=== PATIENT | female | born 2000 | race Caucasian/White ===

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

== ENCOUNTER 2022-04-21 02:24 | Emergency (ER) | payer BC, OTHER ==
[2022-04-21] MEDS ORDERED: TYLENOL EXTRA STRENGTH 500 MG PO ONE (02:47)
[2022-04-21] MEDS ORDERED: Trandate 100 MG PO ONE (02:48)
[2022-04-21] MEDS ORDERED: TYLENOL EXTRA STRENGTH 500 MG ONE (02:49)
[2022-04-21 03:47] LABS: ADD URINE CULTURE? YES (NO); Appearance Cloudy (Clear); Bacteria Few /HPF (None Seen); Bilirubin Negative (Negative); Blood Negative (Negative); Epithelial Cells Few /HPF (None Seen); Glucose, Urine Negative (Negative); Hyaline Casts NONE SEEN /LPF (0-2); Ketones Negative (Negative); Leukocyte Esterase Small (Negative); Nitrite Negative (Negative); Protein,Urine Dip 100 (Negative); Specific Gravity 1.025 (1.005-1.030); Urobilinogen 0.2 mg/dL (0.2); WBC 21-50 /HPF (0-5)
[2022-04-21] MEDS ORDERED: Levofloxacin 250MG Tablet PO ONE (04:01)
[2022-04-21] MEDS ORDERED: HYDROCODONE-ACETAMIN 2.5-108/5 ML SOLUTION PO STA (04:01)
[2022-04-21] MEDS ORDERED: Rocephin 1000 MG INJ IM ONE (04:02)
[2022-04-21 04:05] VITALS: BP 118/78; PULSE 111; O2SAT 95
[2022-04-21] MEDS ORDERED: Levofloxacin 250MG Tablet ONE (04:13)
[2022-04-21] MEDS ORDERED: HYDROCODONE-ACETAMIN 2.5-108/5 ML SOLUTION ONE (04:14)
[2022-04-21] MEDS ORDERED: Rocephin 1000 MG INJ ONE (04:14)
--- NOTE | 2022-04-21 04:15 | ERPHSYRPT ---
- History of Present Illness Time Seen by Provider: 04/21/22 03:21 Source: patient Exam Limitations: no limitations Patient Subjective Stated Complaint: fever and productive cough since sunday Triage Nursing Assessment: pt ambulatory to bed by self, alert and oriented x3, pt c/o cough, fever since sunday, pt tachycardiac and hypertensive, pt takes labetalol BID at home but has not taken it today, pt febrile, no antipyretics taken recently, pt was seen at on sunday and , she was swabbed for COVID, flu and strep both visits and recieved a steriod IM injection today today, pt has been negative for all swabs both visits. Physician History: 21 years old female presented to the ER with 4 days history of cough congestion along with fever chills. She has been evaluated twice in the urgent care with negative strep flu and COVID. Because of repeated coughing having chest soreness. Denies any shortness of breath. Patient has history of hypertension and has not taken her routine medications today and is hypertensive on presentation with some tachycardia. Timing/Duration: day(s) (4), gradual onset, worse Cough Quality/Degree: moderate, productive cough Possible Cause: unknown cause Modifying Factors: Worsens With: coughing, exertion Associated Symptoms: fever, chills, chest pain/soreness, cough, muscle aches, sore throat, No shortness of breath, No wheezing Allergies/Adverse Reactions: No Known Drug Allergies Allergy (Verified 04/21/22 02:31) Home Medications: Labetalol HCl 100 mg [Trandate 100 MG] 100 mg PO BID 04/21/22 [History] Sertraline HCl 50 mg PO DAILY 04/21/22 [History] Hx Tetanus, Diphtheria Vaccination/Date Given: No Hx Influenza Vaccination/Date Given: No Hx Pneumococcal Vaccination/Date Given: No Immunizations Up to Date: Yes Travel Risk - International Travel Have you traveled outside of the country in past 3 weeks: No - Coronavirus Screening Are you exhibiting any of the following symptoms?: Yes Symptoms: Fever, Cough: New Onset Close contact with a COVID-19 positive Pt in past 14-21 Days: No - Vaccine Status Have you recieved a Covid-19 vaccination: No - Review of Systems Constitutional: Fever, Chills, Fatigue Eyes: No Symptoms Ears, Nose, & Throat: Throat Pain Respiratory: Cough Cardiac: No Symptoms Abdominal/Gastrointestinal: No Symptoms Genitourinary Symptoms: No Symptoms Musculoskeletal: Myalgias Skin: No Symptoms Neurological: No Symptoms Endocrine: No Symptoms Hematologic/Lymphatic: No Symptoms Immunological/Allergic: No Symptoms - Past Medical History Pertinent Past Medical History: No Neurological History: No Pertinent History ENT History: No Pertinent History Cardiac History: Hypertension Respiratory History: No Pertinent History Endocrine Medical History: No Pertinent History Musculoskeletal History: Fractures GI Medical History: No Pertinent History History: No Pertinent History Psycho-Social History: No Pertinent History Female Reproductive Disorders: No Pertinent History Other Medical History: Pt notes L arm fx when she was a child - Past Surgical History Past Surgical History: Yes Neuro Surgical History: No Pertinent History Cardiac: No Pertinent History Respiratory: No Pertinent History Gastrointestinal: No Pertinent History Genitourinary: No Pertinent History Musculoskeletal: Orthopedic Surgery Female Surgical History: No Pertinent History Other Surgical History: R wrist - Social History Smoking Status: Never smoker Exposure to second hand smoke: Yes Drug Use: none Patient Lives Alone: No Significant Family History: no pertinent family hx - Female History Hx Last Menstrual Period: 03/13/22 Hx Now: No - Nursing Vital Signs Nursing Vital Signs: Initial Vital Signs Temperature 101.2 F 04/21/22 02:32 Pulse Rate 130 H 04/21/22 02:32 Respiratory Rate 18 04/21/22 02:32 Blood Pressure 176/121 04/21/22 02:32 O2 Sat by Pulse Oximetry 95 04/21/22 02:32 Pain Scale Pain Intensity 0 - Physical Exam General Appearance: no apparent distress, alert Eye Exam: PERRL/EOMI Ears, Nose, Throat Exam: normal ENT inspection Neck Exam: normal inspection, non-tender, supple, full range of motion Respiratory Exam: normal breath sounds, lungs clear Cardiovascular Exam: normal peripheral pulses, tachycardia Gastrointestinal/Abdomen Exam: soft, normal bowel sounds, No tenderness Back Exam: normal inspection Extremity Exam: normal inspection Neurologic Exam: alert, oriented x 3, normal mood/affect, sensation nml, No motor deficits Skin Exam: normal color SpO2 Interpretation: normal SpO2: 95 O2 Delivery: Room Air Ordered Tests: Active Orders 24 hr Category Date Time Status CHEST 1 VIEW (PORTABLE) Stat Exams 04/21/22 03:02 Taken CULTURE,URINE Stat Lab 04/21/22 02:47 Received HCG,QUALITATIVE URINE Stat Lab 04/21/22 02:48 Completed UA W/RFX UR CULTURE Stat Lab 04/21/22 02:47 Completed Medication Summary Discontinued Medications Generic Name Dose Route Start Last Admin Trade Name Candy PRN Reason Stop Dose Admin Acetaminophen 1,000 mg 04/21/22 02:47 04/21/22 02:50 Acetaminophen 500 Mg Tablet PO 04/21/22 02:48 1,000 mg STAT ONE Administration Acetaminophen Confirm 04/21/22 02:49 Acetaminophen 500 Mg Tablet Administered 04/21/22 02:50 Dose 1,000 mg .ROUTE .STK-MED ONE Hydrocodone Bitart/Acetaminophen 10 ml 04/21/22 04:01 04/21/22 04:18 Hydrocodone/Acetaminophen 5 Ml Udcup PO 04/21/22 04:02 10 ml STAT STA Administration Hydrocodone Bitart/Acetaminophen Confirm 04/21/22 04:14 Hydrocodone/Acetaminophen 5 Ml Udcup Administered 04/21/22 04:15 Dose 10 ml .ROUTE .STK-MED ONE Ceftriaxone Sodium 1,000 mg 04/21/22 04:02 04/21/22 04:18 Ceftriaxone Sodium 1000 Mg Inj Vial IM 04/21/22 04:03 1,000 mg STAT ONE Administration Ceftriaxone Sodium Confirm 04/21/22 04:14 Ceftriaxone Sodium 1000 Mg Inj Vial Administered 04/21/22 04:15 Dose 1,000 mg .ROUTE .STK-MED ONE Labetalol HCl 100 mg 04/21/22 02:48 04/21/22 02:57 Labetalol Hcl 100 Mg Tablet PO 04/21/22 02:49 100 mg STAT ONE Administration Levofloxacin 500 mg 04/21/22 04:01 04/21/22 04:18 Levofloxacin 250 Mg Tab PO 04/21/22 04:02 500 mg STAT ONE Administration Levofloxacin Confirm 04/21/22 04:13 Levofloxacin 250 Mg Tab Administered 04/21/22 04:14 Dose 500 mg .ROUTE .STK-MED ONE Lab/Rad Data: Laboratory Results 04/21/22 04/21/22 Range/Units 02:48 02:47 Urine Color Yellow (Yellow) Urine Appearance Cloudy A (Clear) Urine pH 6.0 (4.6-8.0) Ur Specific [place] 1.025 (1.005-1.030) Urine Protein 100 A (Negative) Urine Glucose (UA) Negative (Negative) mg/dL Urine Ketones Negative (Negative) Urine Blood Negative (Negative) Urine Nitrite Negative (Negative) Urine Bilirubin Negative (Negative) Urine Urobilinogen 0.2 (0.2) mg/dL Ur Leukocyte Esterase Small A (Negative) U Hyaline Cast (Auto) NONE SEEN (0-2) /LPF Urine Microscopic RBC 11-20 A (0-5) /HPF Urine Microscopic WBC 21-50 A (0-5) /HPF Ur Epithelial Cells Few (None Seen) /HPF Urine Bacteria Few A (None Seen) /HPF Urine Culture Reflexed YES (NO) Urine HCG, Qual NEGATIVE (Negative) - Progress Progress: re-examined Air Movement: good Progress Note: 04/21/22 04:10 21 years old is evaluated for the cough congestion and fever chills for the last 3 to 4 days with progressive worsening. Patient reports coughing up there to yellow sputum small in amount. Because of repeated coughing having generalized chest soreness. Has a temperature of 101 on presentation, given Tylenol and it improved. Patient was also tachycardic and hypertensive and has not taken her routine antihypertensive today. She is given labetalol and blood pressure improved. Chest x-ray reviewed by me revealed right-sided new opacity other than previous changes, official report is pending. I believe patient is developing pneumonia on the right side. She has a COVID test done yesterday and was negative. He does have UTI as well. She is given a shot of Rocephin and started on Levaquin. Patient is not in any distress and denies any chest pain or difficulty breathing. I would give her a prescription of albuterol inhaler, cough syrup and antibiotics and outpatient follow-up recommended. Discussed signs symptoms of worsening needing return to ER which she seems understanding. Blood Culture(s) Obtained: No Antibiotics given: Yes Counseled pt/family regarding: lab results, diagnosis, need for follow-up, rad results - Departure Departure Disposition: Home Clinical Impression: Pneumonia, Acute UTI, Uncontrolled hypertension Condition: Stable Critical Care Time: No Referrals: CRYSTAL RODRIGES MD [Primary Care Provider] - Follow Up with PCP/3 days Instructions: Pneumonia, Adult (DC), Cough, Adult (DC) Additional Instructions: Take Tylenol/ibuprofen as needed for fever chills/body aches. Follow-up with your primary care physician for reevaluation. Return to ER for worsening cough or if develop difficulty breathing, persistent high-grade fever etc. Take your blood pressure medications regularly, keep a log and follow-up with PCP to see if needed any changes in medications. Prescriptions: Hydrocodone/Acetaminophen [Hydrocodone-Acetamn 7.5-325/15] 10 ml PO Q6HPRN PRN 3 Days #118 ml MDD 40NL PRN Reason: Cough Albuterol Sulfate [Albuterol Sulfate Hfa] 8.5 gm IH Q6H PRN 7 Days #1 inh PRN Reason: Cough Levofloxacin [Levaquin 500 MG Tablet] 500 mg PO DAILY #7 tablet
--- NOTE | 2022-04-21 08:41 | XRAY ---
Indication: Fever and cough. Comparison: March 28, 2019 Portable chest demonstrates reoccurring moderate right base infiltrate/atelectasis. New minimal left upper lobe subsegmental atelectasis/scarring. Remaining heart and bony thorax normal.
== END 2022-04-21 04:35 | disposition home or self-care (01) ==
LOC: ED 02:24
DX: J18.9 Pneumonia, unspecified organism (principal); N39.0 Urinary tract infection, site not specified; I10 Essential (primary) hypertension; R05.1 Acute cough; R50.9 Fever, unspecified; Z79.891 Long term (current) use of opiate analgesic; Z79.899 Other long term (current) drug therapy; Z28.310 Unvaccinated for COVID-19
CPT/HCPCS: 71045; 81001; 81025; 87086; 96372; 99284; J0696; A9270-GY

== ENCOUNTER 2022-08-16 12:28 | Day surgery (SDC) | payer BC, OTHER ==
[2022-08-16] MEDS ORDERED: LIDOCAINE HCL 2% 100 MG/5 ML IJ ONE (12:29)
[2022-08-16 12:56] LABS: HCG URINE TEST NEGATIVE (NEGATIVE)
[2022-08-16] MEDS ORDERED: DIPRIVAN 200 MG/20 ML IV ONE (14:23)
[2022-08-16] MEDS ORDERED: Lactated Ringers 1,000 ML IV ONE (15:23)
--- NOTE | 2022-08-16 16:40 | XRAY ---
Indication: Bilateral L4-S1 MBB. Intraoperative fluoroscopy provided for 15 seconds. Single digital spot image submitted for interpretation demonstrates posterior needle tips projecting over the expected left and right L4-S1 nerve roots. Correlate with intraoperative findings/report.
--- NOTE | 2022-08-16 16:44 | XRAY ---
15 seconds of fluoroscopy was used in surgery for a bilateral L4-S1 MBB.
== END 2022-08-16 14:50 | disposition home or self-care (01) ==
LOC: SDC-PAIN 12:28
PROVIDERS: ATTEND Psychiatry & Neurology Pain Medicine
DX: M47.816 Spondylosis without myelopathy or radiculopathy, lumbar region (principal); Z79.899 Other long term (current) drug therapy
CPT/HCPCS: 64493; 64494; 72020; 77002; 81025; J2704

== ENCOUNTER 2022-09-27 12:02 | Day surgery (SDC) | payer BC, OTHER ==
[2022-09-27] MEDS ORDERED: BUPIVACAINE 0.5% VIAL IJ ONE (12:03)
[2022-09-27 13:28] LABS: HCG SERUM TEST NEGATIVE (NEGATIVE)
[2022-09-27] MEDS ORDERED: DIPRIVAN 200 MG/20 ML IV ONE ×2 (13:52→14:05)
[2022-09-27] MEDS ORDERED: Lactated Ringers 1,000 ML IV ONE (14:36)
--- NOTE | 2022-09-27 16:57 | XRAY ---
Indication: Bilateral L4-S1 MBB. Intraoperative fluoroscopy provided for 13 seconds. Single digital spot image submitted for interpretation demonstrates posterior needle tips projecting over the expected left and right L4-S1 nerve roots. Correlate with intraoperative findings/report.
--- NOTE | 2022-09-27 17:12 | XRAY ---
13 seconds of fluoroscopy was used in surgery for a bilateral L4-S1 MBB.
== END 2022-09-27 14:24 | disposition home or self-care (01) ==
LOC: SDC-PAIN 12:02
PROVIDERS: ATTEND Psychiatry & Neurology Pain Medicine
DX: M47.816 Spondylosis without myelopathy or radiculopathy, lumbar region (principal)
CPT/HCPCS: 36415; 64493; 64494; 72020; 77002; 84703; J2704

== ENCOUNTER 2022-10-16 13:32 | Emergency (ER) | payer BC, OTHER ==
--- NOTE | 2022-10-16 13:36 | ERPHSYRPT ---
- History of Present Illness Time Seen by Provider: 10/16/22 13:36 Source: patient Exam Limitations: no limitations Physician History: This is a 22-year-old obese white female who prior to arrival, tripped over a baby gate and fell onto her right knee. She is able to bear weight but it does hurt to do so. There are no other complaints of pain or injury sites. Method of Injury: fell, twisted Occurred: just prior to arrival Quality: constant, aching Severity of Pain-Max: mild (To moderate) Severity of Pain-Current: mild (To moderate) Lower Extremities Pain: knee: right Modifying Factors: Improves With: movement Associated Symptoms: other (Hurts to bear weight but can do so) Allergies/Adverse Reactions: No Known Drug Allergies Allergy (Verified 10/16/22 13:47) Home Medications: Sertraline HCl 50 mg PO DAILY 04/21/22 [History] Hydrocodone/Acetaminophen [Hydrocodone-Acetamin 5-325 mg] 5 mg PO TID 10/16/22 [History] Hx Tetanus, Diphtheria Vaccination/Date Given: No Hx Influenza Vaccination/Date Given: No Hx Pneumococcal Vaccination/Date Given: No Travel Risk - International Travel Have you traveled outside of the country in past 3 weeks: No - Coronavirus Screening Are you exhibiting any of the following symptoms?: No Close contact with a COVID-19 positive Pt in past 14-21 Days: No - Vaccine Status Have you recieved a Covid-19 vaccination: No - Review of Systems Constitutional: No Symptoms Eyes: No Symptoms Ears, Nose, & Throat: No Symptoms Respiratory: No Symptoms Cardiac: No Symptoms Abdominal/Gastrointestinal: No Symptoms Genitourinary Symptoms: No Symptoms Musculoskeletal: Fall (Right knee), Injury Skin: No Symptoms Neurological: No Symptoms Psychological: No Symptoms Endocrine: No Symptoms Hematologic/Lymphatic: No Symptoms Immunological/Allergic: No Symptoms All Other Systems: Reviewed and Negative - Past Medical History Pertinent Past Medical History: No Neurological History: No Pertinent History ENT History: No Pertinent History Cardiac History: Hypertension Respiratory History: No Pertinent History Endocrine Medical History: No Pertinent History Musculoskeletal History: Fractures GI Medical History: No Pertinent History History: No Pertinent History Psycho-Social History: No Pertinent History Female Reproductive Disorders: No Pertinent History Other Medical History: Pt notes L arm fx when she was a child - Past Surgical History Past Surgical History: Yes Neuro Surgical History: No Pertinent History Cardiac: No Pertinent History Respiratory: No Pertinent History Gastrointestinal: No Pertinent History Genitourinary: No Pertinent History Musculoskeletal: Orthopedic Surgery Female Surgical History: No Pertinent History Other Surgical History: R wrist - Social History Smoking Status: Never smoker Exposure to second hand smoke: Yes Drug Use: none Patient Lives Alone: No Significant Family History: no pertinent family hx - Nursing Vital Signs Nursing Vital Signs: Initial Vital Signs Temperature 97.8 F 10/16/22 13:42 Pulse Rate 105 H 10/16/22 13:42 Respiratory Rate 18 10/16/22 13:42 Blood Pressure 136/80 10/16/22 13:42 O2 Sat by Pulse Oximetry 99 10/16/22 13:42 Pain Scale Pain Intensity 8 - Physical Exam General Appearance: no apparent distress, alert, anxiety, obese Eyes, Ears, Nose, Throat Exam: normal ENT inspection, moist mucous membranes Neck Exam: normal inspection, non-tender, supple, full range of motion Cardiovascular/Respiratory Exam: chest non-tender, no respiratory distress Gastrointestinal/Abdominal Exam: non-tender Back Exam: normal inspection, normal range of motion, No CVA tenderness, No vertebral tenderness Hips Exam: bilateral: non-tender, normal inspection, normal range of motion, no evidence of injury Legs Exam: bilateral leg: non-tender, normal inspection, normal range of motion, no evidence of injury Knees Exam: right knee: soft tissue tenderness (Anteriorly), left knee: non- tender, bilateral knee: normal inspection, normal range of motion, no evidence of injury Ankle Exam: bilateral ankle: non-tender, normal inspection, normal range of motion, no evidence of injury Foot Exam: bilateral foot: non-tender, normal inspection, normal range of motion, no evidence of injury Neuro/Tendon Exam: normal sensation, normal motor functions, normal tendon functions, responds to pain, no evidence tendon injury Mental Status Exam: alert, oriented x 3, cooperative Skin Exam: normal color, warm, dry SpO2 Interpretation: normal O2 Delivery: Room Air - Course Nursing assessment & vital signs reviewed: Yes Ordered Tests: Active Orders 24 hr Category Date Time Status KNEE (3 VIEWS) Stat Exams 10/16/22 13:43 Completed - Progress Progress: improved, pain not gone completely Progress Note: 10/16/22 14:13 X-ray right knee was interpreted by the radiologist and the impression was reviewed by me. This patient does not have any acute fracture or dislocation. This patient's medical issue is 1 of low complexity. Level complexity in the work-up performed is based on review of the patient's past medical history, review of the patient's medication list, review the patient's drug allergy list, history of present illness. The work-up in this patient includes x-ray of the right knee. The above-stated findings are noted. Counseled pt/family regarding: diagnosis, need for follow-up, rad results Medical Desision Making - Independent Historian Additional History obtained from: Spouse - Diagnostic Testing Diagnostic test were ordered, analyzed, and reviewed by me: Yes Radiological Interpretation: Reviewed by me, Teleradiologist Report - Risk of complications Minimal Risk: Minimal risk of morbidity - Departure Departure Disposition: Home Clinical Impression: Contusion of right knee Condition: Stable Critical Care Time: No Referrals: CRYSTAL RODIRGES MD [Primary Care Provider] - Follow up/PCP as directed Additional Instructions: Ice pack to right knee 3 times a day for the next 48 hours. Use Tylenol and ibuprofen for pain control. Follow-up with your primary care provider or at [facility] orthopedic clinic for further evaluation and management. Weightbearing and activity as tolerated. If you are going to the orthopedic clinic here at [facility], it is a Sunday through Sunday 8 AM to 10 AM clinic. You do not need an appointment.
[2022-10-16 13:54] VITALS: BP 136/80; TEMP 97.8
--- NOTE | 2022-10-16 14:06 | XRAY ---
Indication: Pain following fall. Comparison: None 3 view right knee demonstrates minimal medial joint space narrowing and small suprapatella spurring. No other bony, articular, or soft tissue abnormalities.
[2022-10-16 14:34] VITALS: PULSE 100; RESP 16; O2SAT 98
== END 2022-10-16 14:34 | disposition home or self-care (01) ==
LOC: ED 13:32
DX: S80.01XA Contusion of right knee, initial encounter (principal); W01.0XXA Fall on same level from slipping, tripping and stumbling without subsequent striking against object, initial encounter; I10 Essential (primary) hypertension; Z79.891 Long term (current) use of opiate analgesic; Z79.899 Other long term (current) drug therapy; Z28.310 Unvaccinated for COVID-19
CPT/HCPCS: 73562; 99283

== ENCOUNTER 2023-01-10 10:11 | Day surgery (SDC) | payer OTHER ==
[2023-01-10] MEDS ORDERED: LIDOCAINE HCL 1% 50 MG/5 ML VL PF IJ ONE (10:12)
[2023-01-10] MEDS ORDERED: Depo-Medrol 40 MG/ML IM ONE (10:12)
[2023-01-10] MEDS ORDERED: BUPIVACAINE 0.5% VIAL IJ ONE (10:12)
[2023-01-10 11:01] LABS: HCG URINE TEST NEGATIVE (NEGATIVE)
[2023-01-10] MEDS ORDERED: DIPRIVAN 200 MG/20 ML IV ONE ×2 (12:31→12:37)
[2023-01-10] MEDS ORDERED: Versed 2 MG/2 ML Injection ONE (12:31)
[2023-01-10] MEDS ORDERED: Lactated Ringers 1,000 ML IV ONE (15:04)
--- NOTE | 2023-01-10 17:02 | XRAY ---
Indication: Right L4-S1 RFA. Intraoperative fluoroscopy provided for 30 seconds. 5 digital spot image submitted for interpretation demonstrates posterior needle tips projecting over the expected right L4-S1 nerve roots. Correlate with intraoperative findings/report.
--- NOTE | 2023-01-10 17:21 | XRAY ---
30 seconds of fluoroscopy was used in surgery for a right L4-S1 RFA.
== END 2023-01-10 12:59 | disposition home or self-care (01) ==
LOC: SDC-PAIN 10:11
PROVIDERS: ATTEND Psychiatry & Neurology Pain Medicine
DX: M47.816 Spondylosis without myelopathy or radiculopathy, lumbar region (principal); Z79.899 Other long term (current) drug therapy
CPT/HCPCS: 64635; 64636; 72100; 77002; 81025; J1030; J2001; J2250; J2704

== ENCOUNTER 2023-01-11 10:05 | Day surgery (SDC) | payer OTHER ==
[2023-01-11] MEDS ORDERED: BUPIVACAINE 0.5% VIAL IJ ONE (10:06)
[2023-01-11] MEDS ORDERED: XYLOCAINE 1% HCL 20 ML MDV IJ ONE (10:06)
[2023-01-11] MEDS ORDERED: Depo-Medrol 40 MG/ML IM ONE (10:06)
[2023-01-11 10:53] LABS: HCG URINE TEST NEGATIVE (NEGATIVE)
[2023-01-11] MEDS ORDERED: DIPRIVAN 200 MG/20 ML IV ONE ×2 (11:57→12:15)
[2023-01-11] MEDS ORDERED: Lactated Ringers 1,000 ML IV ONE (12:29)
--- NOTE | 2023-01-11 12:53 | XRAY ---
Indication: Left L4-S1 RFA. Intraoperative fluoroscopy provided for 21 seconds. 4 digital spot image submitted for interpretation demonstrates posterior needle tips projecting over the expected left L4-S1 nerve roots. Correlate with intraoperative findings/report.
--- NOTE | 2023-01-11 13:50 | XRAY ---
21 seconds of fluoroscopy was used in surgery for a left L4-S1 RFA.
== END 2023-01-11 12:30 | disposition home or self-care (01) ==
LOC: SDC-PAIN 10:05
PROVIDERS: ATTEND Psychiatry & Neurology Pain Medicine
DX: M47.816 Spondylosis without myelopathy or radiculopathy, lumbar region (principal)
CPT/HCPCS: 64635; 64636; 72100; 77002; 81025; J1030; J2704

== ENCOUNTER 2023-03-06 09:39 | Emergency (ER) | payer OTHER ==
[2023-03-06] MEDS ORDERED: TORAdol 30 mg Injection IV ONE (09:40)
[2023-03-06] MEDS ORDERED: Sodium Chloride 0.9% 1000 ML 1,000 ML IV SCH (09:45)
[2023-03-06 09:48] VITALS: RESP 24; TEMP 97.5
[2023-03-06] MEDS ORDERED: TORAdol 30 mg Injection ONE ×2 (09:59→10:02)
[2023-03-06] MEDS ORDERED: Zofran 4 MG/2 ML VIAL IV ONE (09:59)
[2023-03-06] MEDS ORDERED: Sodium Chloride 0.9% 1000 ML 0 ML ONE (09:59)
[2023-03-06] MEDS ORDERED: Zofran 4 MG/2 ML VIAL ONE ×2 (10:02→10:04)
[2023-03-06] MEDS ORDERED: Sodium Chloride 0.9% 1000 ML 1,000 ML ONE (10:02)
[2023-03-06 10:15] LABS: Absolute Neutrophil Ct (ANC) 5.94 x10^3/uL (1.4-6.9); BASOPHIL % 0.7 % (0.0-0.4); Basophil (Absolute #) 0.07 x10^3/uL (0-0.4); Eosinophil % 1.6 % (0.00-5.0); Eosinophil (Absolute #) 0.17 x10^3/uL (0-0.5); Hematocrit 37.5 % (35-47); Hemoglobin 11.5 g/dL (12.0-16.0); IMMATURE GRAN # 0.03 x10^3u/L (0.00-0.03); IMMATURE GRAN % 0.3 % (0.00-0.4); Lymphocyte (Absolute #) 3.48 x10^3/uL (1.0-4.6); Lymphocytes % 33.8 % (24.0-44.0); Mean Cell Volume 80.3 fL (78-100); Mean Corpuscular Hemoglobin 24.6 pg (26-32); Mean Corpuscular Hgb Concent. 30.7 g/dL (32-36); Mean Platelet Volume 9.1 fL (7.5-11.0); Monocyte (Absolute #) 0.62 x10^3/uL (0.0-1.3); Neutrophil % 57.6 % (36.0-66.0); Platelet Count 499 x10^3/uL (150-450); Red Blood Count 4.67 x10^6/uL (4.1-5.4); Red Cell Distribution Width 15.9 % (11.5-14.0); White Blood Count 10.3 x10^3/uL (4.0-10.5)
[2023-03-06 10:29] LABS: HCG SERUM TEST NEGATIVE (NEGATIVE)
[2023-03-06 10:30] LABS: ALBUMIN 4.6 g/dL (3.5-5.0); ANION GAP 16.9 MEQ/L (5-15); BILIRUBIN,TOTAL 0.6 mg/dL (0.2-1.3); Calcium 9.6 mg/dL (8.4-10.2); Creatinine 1 0.69 mg/dL (0.52-1.04); EST GLOMERULAR FILTRATION RATE 124.2 ML/MIN; Potassium 3.9 mmol/L (3.5-5.1); Total Protein 8.2 g/dL (6.3-8.2)
--- NOTE | 2023-03-06 11:07 | XRAY ---
Indication: Right upper quadrant pain. Nausea and vomiting. Multiple contiguous axial images obtained through the abdomen and pelvis without contrast. Comparison: None Lung bases clear. Heart not enlarged. Noncontrasted stomach and bowel loops appear nonobstructed with normal appendix. 3-4 mm distal right ureter calculus just proximal to UVJ. More proximal right ureter is prominent up to 11-12 mm along with mild hydronephrosis consistent with partial obstructive uropathy. Incidental 3.5 cm right ovary cyst and 20.7 cm fatty hepatomegaly. No free fluid/air. Remaining liver, gallbladder, pancreas, spleen, adrenal glands, kidneys, ureters, bladder, uterus, and aorta are unremarkable for noncontrast exam. Osseous structures intact. Impression: 1. 3-4 mm distal right ureteral calculus producing partial obstruction as detailed. 2. Incidental fatty hepatomegaly and 3.5 cm right ovary cyst.
--- NOTE | 2023-03-06 11:16 | ERPHSYRPT ---
- History of Present Illness Time Seen by Provider: 03/06/23 10:00 Historian: patient Exam Limitations: no limitations Patient Subjective Stated Complaint: Pt states "My lower belly is hurting really bad." Triage Nursing Assessment: PT presented alert and oriented X 3, skin pwd. pt unable to sit still, pt moaning and screaming, pt in no apparent respiratory distress. Physician History: Patient is a 22-year-old female presents to our ED for evaluation of acute onset right lower quadrant painThat started this morning. Pain described as an ache that is Localized. No trauma no fever. No vaginal discharge. Symptoms are constant. Symptoms are moderate in intensity. No specific worsening improving factors. Patient voices no other complaints or concerns at this time. Portions of this note were created with voice recognition technology. There may be grammatical, spelling, punctuation or sound alike errors Timing/Duration: today Activities at Onset: none Quality: aching Abdominal Pain Onset Location: RLQ Pain Radiation: no radiation Severity of Pain-Max: moderate Severity of Pain-Current: mild Modifying Factors: Improves With: nothing Associated Symptoms: nausea Previous symptoms: no prior history Allergies/Adverse Reactions: No Known Drug Allergies Allergy (Verified 10/16/22 13:47) Home Medications: No Reportable Medications [No Reported Medications] 03/06/23 [History] Hx Tetanus, Diphtheria Vaccination/Date Given: No Hx Influenza Vaccination/Date Given: No Hx Pneumococcal Vaccination/Date Given: No Immunizations Up to Date: No Travel Risk - International Travel Have you traveled outside of the country in past 3 weeks: No - Coronavirus Screening Are you exhibiting any of the following symptoms?: No Close contact with a COVID-19 positive Pt in past 14-21 Days: No - Vaccine Status Have you recieved a Covid-19 vaccination: No - Review of Systems Constitutional: No Symptoms, No Fever, No Chills Eyes: No Symptoms Ears, Nose, & Throat: No Symptoms Respiratory: No Symptoms, No Cough, No Dyspnea Cardiac: No Symptoms, No Chest Pain, No Edema, No Syncope Abdominal/Gastrointestinal: No Symptoms, No Abdominal Pain, No Nausea, No Vomiting, No Diarrhea Genitourinary Symptoms: No Symptoms, No Dysuria Musculoskeletal: No Symptoms, No Back Pain, No Neck Pain Skin: No Symptoms, No Rash Neurological: No Symptoms, No Dizziness, No Focal Weakness, No Sensory Changes Psychological: No Symptoms Endocrine: No Symptoms Hematologic/Lymphatic: No Symptoms Immunological/Allergic: No Symptoms All Other Systems: Reviewed and Negative - Past Medical History Pertinent Past Medical History: No Neurological History: No Pertinent History ENT History: No Pertinent History Cardiac History: Hypertension Respiratory History: No Pertinent History Endocrine Medical History: No Pertinent History Musculoskeletal History: Fractures GI Medical History: No Pertinent History History: No Pertinent History Psycho-Social History: No Pertinent History Female Reproductive Disorders: No Pertinent History Other Medical History: Pt notes L arm fx when she was a child - Past Surgical History Past Surgical History: Yes Neuro Surgical History: No Pertinent History Cardiac: No Pertinent History Respiratory: No Pertinent History Gastrointestinal: No Pertinent History Genitourinary: No Pertinent History Musculoskeletal: Orthopedic Surgery Female Surgical History: No Pertinent History Other Surgical History: R wrist - Social History Smoking Status: Never smoker Exposure to second hand smoke: Yes Drug Use: none Patient Lives Alone: No Significant Family History: no pertinent family hx - Female History Hx Last Menstrual Period: 02/02/2023 Hx Now: No - Nursing Vital Signs Nursing Vital Signs: Initial Vital Signs Temperature 97.5 F 03/06/23 09:45 Pulse Rate 99 H 03/06/23 09:45 Respiratory Rate 24 03/06/23 09:45 Blood Pressure 146/101 03/06/23 09:45 O2 Sat by Pulse Oximetry 97 03/06/23 09:45 Pain Scale Pain Intensity 0 - Physical Exam General Appearance: no apparent distress, alert Eye Exam: PERRL/EOMI, eyes nml inspection Ears, Nose, Throat Exam: normal ENT inspection, pharynx normal, moist mucous membranes Neck Exam: normal inspection, non-tender, supple, full range of motion Respiratory Exam: normal breath sounds, lungs clear, airway intact, No respiratory distress Cardiovascular Exam: regular rate/rhythm, normal heart sounds, normal peripheral pulses Gastrointestinal/Abdomen Exam: soft, No tenderness, No mass Back Exam: normal inspection, normal range of motion, No CVA tenderness, No vertebral tenderness Extremity Exam: normal inspection, normal range of motion, pelvis stable Neurologic Exam: alert, oriented x 3, cooperative, normal mood/affect, nml cerebellar function, sensation nml, No motor deficits Skin Exam: normal color, warm, dry Lymphatic Exam: No adenopathy SpO2 Interpretation: normal SpO2: 98 O2 Delivery: Room Air - Course Nursing assessment & vital signs reviewed: Yes - CT Exams Abdomen/Pelvis CT Interpretation: Tele-radiologist Report (3 to 4 mm right UVJ Ureterolithiasis with hydronephrosis. Right ovarian cyst measuring 3.5 cm. Fatty hepatomegaly.) Ordered Tests: Active Orders 24 hr Category Date Time Status IV Insertion STAT Care 03/06/23 09:40 Active ABDOMEN AND PELVIS W/0 CONTRAS [CT] Stat Exams 03/06/23 10:47 Completed CBC W DIFF Stat Lab 03/06/23 10:00 Completed CMP Stat Lab 03/06/23 10:00 Completed CULTURE,URINE Stat Lab 03/06/23 11:30 Received HCG QUALITATIVE, SERUM Stat Lab 03/06/23 10:00 Completed UA W/RFX UR CULTURE Stat Lab 03/06/23 11:30 Completed Medication Summary Generic Name Dose Route Start Last Admin Trade Name Freq PRN Reason Stop Dose Admin Sodium Chloride 1,000 mls @ 100 mls/hr 03/06/23 09:45 03/06/23 10:01 Sodium Chloride 0.9% 1000 Ml IV 04/05/23 09:44 100 mls/hr .Q10H ЮЛИЯ Administration Discontinued Medications Generic Name Dose Route Start Last Admin Trade Name Freq PRN Reason Stop Dose Admin Droperidol 1.25 mg 03/06/23 13:01 03/06/23 13:04 Droperidol 5 Mg/2 Ml Vial IV 03/06/23 13:02 1.25 mg STAT ONE Administration Droperidol Confirm 03/06/23 13:03 Droperidol 5 Mg/2 Ml Vial Administered 03/06/23 13:04 Dose 5 mg .ROUTE .STK-MED ONE Ceftriaxone Sodium/Dextrose 1 g in 50 mls @ 100 mls/hr 03/06/23 12:13 03/06/23 13:02 Rocephin 1 Gm-D5w 50 Ml Bag IV 03/06/23 12:42 Infused STAT STA Infusion Ceftriaxone Sodium/Dextrose Confirm 03/06/23 12:22 Rocephin 1 Gm-D5w 50 Ml Bag Administered 03/06/23 12:23 Dose 1 g in 50 mls @ ud IV .STK-MED ONE Ketorolac Tromethamine 30 mg 03/06/23 09:40 03/06/23 10:02 Ketorolac Tromethamine 30 Mg/Ml Inj IV 03/06/23 09:41 30 mg STAT ONE Administration Ketorolac Tromethamine Confirm 03/06/23 09:59 Ketorolac Tromethamine 30 Mg/Ml Inj Administered 03/06/23 10:00 Dose 30 mg .ROUTE .STK-MED ONE Ketorolac Tromethamine Confirm 03/06/23 10:02 Ketorolac Tromethamine 30 Mg/Ml Inj Administered 03/06/23 10:03 Dose 30 mg .ROUTE .STK-MED ONE Morphine Sulfate 4 mg 03/06/23 11:51 03/06/23 11:56 Morphine Sulfate 4 Mg/Ml Injection IV 03/06/23 11:52 4 mg STAT ONE Administration Morphine Sulfate Confirm 03/06/23 11:53 Morphine Sulfate 4 Mg/Ml Injection Administered 03/06/23 11:54 Dose 4 mg .ROUTE .STK-MED ONE Ondansetron HCl 4 mg 03/06/23 09:59 03/06/23 10:04 Ondansetron Hcl 4 Mg/2 Ml Vial IV 03/06/23 10:00 4 mg STAT ONE Administration Ondansetron HCl Confirm 03/06/23 10:02 Ondansetron Hcl 4 Mg/2 Ml Vial Administered 03/06/23 10:03 Dose 4 mg .ROUTE .STK-MED ONE Ondansetron HCl Confirm 03/06/23 10:04 Ondansetron Hcl 4 Mg/2 Ml Vial Administered 03/06/23 10:05 Dose 4 mg .ROUTE .STK-MED ONE Lab/Rad Data: Laboratory Result Diagrams 03/06/23 10:00 03/06/23 10:00 Laboratory Results 03/06/23 03/06/23 03/06/23 Range/Units 11:30 10:00 10:00 WBC (4.0-10.5) x10^3/uL RBC (4.1-5.4) x10^6/uL Hgb (12.0-16.0) g/dL Hct (35-47) % MCV (78-100) fL MCH (26-32) pg MCHC (32-36) g/dL RDW (11.5-14.0) % Plt Count (150-450) x10^3/uL MPV (7.5-11.0) fL Gran % (36.0-66.0) % Immature Gran % (Auto) (0.00-0.4) % Nucleat RBC Rel Count (0.00-0.1) % Eos # (Auto) (0-0.5) x10^3/uL Immature Gran # (Auto) (0.00-0.03) x10^3u/L Absolute Lymphs (auto) (1.0-4.6) x10^3/uL Absolute Monos (auto) (0.0-1.3) x10^3/uL Absolute Nucleated RBC (0.00-0.01) x10^3u/L Lymphocytes % (24.0-44.0) % Monocytes % (0.0-12.0) % Eosinophils % (0.00-5.0) % Basophils % (0.0-0.4) % Absolute Granulocytes (1.4-6.9) x10^3/uL Basophils # (0-0.4) x10^3/uL Sodium 139 (137-145) mmol/L Potassium 3.9 (3.5-5.1) mmol/L Chloride 106 (98-107) mmol/L Carbon Dioxide 19 L (22-30) mmol/L Anion Gap 16.9 H (5-15) MEQ/L BUN 12 (7-17) mg/dL Creatinine 0.69 (0.52-1.04) mg/dL Estimated GFR 124.2 ML/MIN Glucose 135 H (74-106) mg/dL Calcium 9.6 (8.4-10.2) mg/dL Total Bilirubin 0.60 (0.2-1.3) mg/dL AST 23 (14-36) U/L ALT 26 (0-35) U/L Alkaline Phosphatase 68 (38-126) U/L Serum Total Protein 8.2 (6.3-8.2) g/dL Albumin 4.6 (3.5-5.0) g/dL Serum HCG, Qual NEGATIVE (NEGATIVE) Urine Color Yellow (Yellow) Urine Appearance Cloudy A (Clear) Urine pH 5.5 (4.6-8.0) Ur Specific Bagley >=1.030 A (1.005-1.030) Urine Protein Trace A (Negative) Urine Glucose (UA) Negative (Negative) mg/dL Urine Ketones Negative (Negative) Urine Blood Moderate A (Negative) Urine Nitrite Negative (Negative) Urine Bilirubin Negative (Negative) Urine Urobilinogen 0.2 (0.2) mg/dL Ur Leukocyte Esterase Small A (Negative) U Hyaline Cast (Auto) 3-5 A (0-2) /LPF Urine Microscopic RBC 21-50 A (0-5) /HPF Urine Microscopic WBC 21-50 A (0-5) /HPF Ur Epithelial Cells Many A (None Seen) /HPF Urine Bacteria Many A (None Seen) /HPF Urine Culture Reflexed YES (NO) 03/06/23 Range/Units 10:00 WBC 10.3 (4.0-10.5) x10^3/uL RBC 4.67 (4.1-5.4) x10^6/uL Hgb 11.5 L (12.0-16.0) g/dL Hct 37.5 (35-47) % MCV 80.3 (78-100) fL MCH 24.6 L (26-32) pg MCHC 30.7 L (32-36) g/dL RDW 15.9 H (11.5-14.0) % Plt Count 499 H (150-450) x10^3/uL MPV 9.1 (7.5-11.0) fL Gran % 57.6 (36.0-66.0) % Immature Gran % (Auto) 0.3 (0.00-0.4) % Nucleat RBC Rel Count 0.0 (0.00-0.1) % Eos # (Auto) 0.17 (0-0.5) x10^3/uL Immature Gran # (Auto) 0.03 (0.00-0.03) x10^3u/L Absolute Lymphs (auto) 3.48 (1.0-4.6) x10^3/uL Absolute Monos (auto) 0.62 (0.0-1.3) x10^3/uL Absolute Nucleated RBC 0.00 (0.00-0.01) x10^3u/L Lymphocytes % 33.8 (24.0-44.0) % Monocytes % 6.0 (0.0-12.0) % Eosinophils % 1.6 (0.00-5.0) % Basophils % 0.7 (0.0-0.4) % Absolute Granulocytes 5.94 (1.4-6.9) x10^3/uL Basophils # 0.07 (0-0.4) x10^3/uL Sodium (137-145) mmol/L Potassium (3.5-5.1) mmol/L Chloride (98-107) mmol/L Carbon Dioxide (22-30) mmol/L Anion Gap (5-15) MEQ/L BUN (7-17) mg/dL Creatinine (0.52-1.04) mg/dL Estimated GFR ML/MIN Glucose (74-106) mg/dL Calcium (8.4-10.2) mg/dL Total Bilirubin (0.2-1.3) mg/dL AST (14-36) U/L ALT (0-35) U/L Alkaline Phosphatase (38-126) U/L Serum Total Protein (6.3-8.2) g/dL Albumin (3.5-5.0) g/dL Serum HCG, Qual (NEGATIVE) Urine Color (Yellow) Urine Appearance (Clear) Urine pH (4.6-8.0) Ur Specific Bagley (1.005-1.030) Urine Protein (Negative) Urine Glucose (UA) (Negative) mg/dL Urine Ketones (Negative) Urine Blood (Negative) Urine Nitrite (Negative) Urine Bilirubin (Negative) Urine Urobilinogen (0.2) mg/dL Ur Leukocyte Esterase (Negative) U Hyaline Cast (Auto) (0-2) /LPF Urine Microscopic RBC (0-5) /HPF Urine Microscopic WBC (0-5) /HPF Ur Epithelial Cells (None Seen) /HPF Urine Bacteria (None Seen) /HPF Urine Culture Reflexed (NO) - Progress Progress: improved Progress Note: Case discussed with Dr. Jin urologist at [facility] who accepts transfer at 1:08 PM.Transfer will be from ED to ED 03/06/23 13:12 22-year-old female presents emergency department for evaluation of right lower quadrant and flank pain. Workup reveals a 3 to 4 mm obstructive UVJ stone. There is associated hydronephrosis. UA reveals urinary tract infection with pyuria. CBC CMP otherwise unremarkable. Patient been Experiencing significant pain in spite of our efforts to control her pain using Toradol and morphine. Patient requires a urologist. We have been calling and no local urologist are available. Patient accepted by Dr. Jin at [facility].Patient will be transferred to their ER. Plan of care discussed with patient. She agrees to transfer to [facility] for further evaluation and treatment. Portions of this note were created with voice recognition technology. There may be grammatical, spelling, punctuation or sound alike errors Complexity of problems addressed is moderate acute complicated No critical care time Complex of data reviewed and analyzed is extensive. Test ordered test reviewed. Results analyzed and correlated clinically. Management [facility] to Dr. Jin at 1:08 PM. Risk of complication and or risk of morbidity/mortality of patient management is high. Patient requires hospitalization/higher level of care for further evaluation and treatment. Vital stable. Time spent to transfer patient is approximately 15 to 20 minutes. Plan of care established for shared decision making. No social determinants of health present impede follow-up. Portions of this note were created with voice recognition technology. There may be grammatical, spelling, punctuation or sound alike errors 03/06/23 13:20 Counseled pt/family regarding: lab results, diagnosis, rad results - Departure Departure Disposition: Transfer Clinical Impression: Thrombocytosis, Abdominal pain, Right ovarian cyst, Ureterolithiasis, Hydronephrosis, Fatty liver, Hepatomegaly, Urinary tract infection, Intractable pain Condition: Stable Critical Care Time: No Referrals: CRYSTAL RODRIGES MD [Primary Care Provider] - Follow up/PCP as directed
[2023-03-06 11:49] LABS: Appearance Cloudy (Clear); Bacteria Many /HPF (None Seen); Bilirubin Negative (Negative); Blood Moderate (Negative); Epithelial Cells Many /HPF (None Seen); Glucose, Urine Negative (Negative); Ketones Negative (Negative); Leukocyte Esterase Small (Negative); Nitrite Negative (Negative); Ph 5.5 (4.6-8.0); Protein,Urine Dip Trace (Negative); RBC 21-50 /HPF (0-5); Specific Gravity >=1.030 (1.005-1.030); Urobilinogen 0.2 mg/dL (0.2); WBC 21-50 /HPF (0-5)
[2023-03-06] MEDS ORDERED: MORPHINE SULFATE 4 MG INJ IV ONE (11:51)
[2023-03-06 11:52] LABS: ADD URINE CULTURE? YES (NO)
[2023-03-06] MEDS ORDERED: MORPHINE SULFATE 4 MG INJ ONE (11:53)
[2023-03-06] MEDS ORDERED: ROCEPHIN 1 Gm-D5w 50 ml Bag** 1 G/50 ML IVPB IV STA (12:13)
[2023-03-06] MEDS ORDERED: ROCEPHIN 1 Gm-D5w 50 ml Bag** 1 G/50 ML IVPB IV ONE (12:22)
[2023-03-06 13:08] VITALS: BP 129/88; PULSE 93
[2023-03-06 13:13] VITALS: O2SAT 98
== END 2023-03-06 13:29 | disposition short-term general hospital (02) ==
LOC: ED 09:39
DX: N13.2 Hydronephrosis with renal and ureteral calculous obstruction (principal); D75.839 Thrombocytosis, unspecified; R10.31 Right lower quadrant pain; N83.201 Unspecified ovarian cyst, right side; K76.0 Fatty (change of) liver, not elsewhere classified; R16.0 Hepatomegaly, not elsewhere classified; N39.0 Urinary tract infection, site not specified; I10 Essential (primary) hypertension; Z28.310 Unvaccinated for COVID-19
CPT/HCPCS: 36000; 36415; 74176; 80053; 81001; 84703; 85025; 87086; 96365; 96374; 96375; 99285; J0696; J1885; J2270; J2405